=== PATIENT | male | born 1945 | race Caucasian/White ===

== ENCOUNTER 2018-09-27 10:32 | Emergency (ER) | payer MEDICARE, OTHER ==
[~2018-09-27] VITALS: Ht 165.1 cm; Wt 55.4 kg
[2018-09-27 12:03] VITALS: BP 173/87
== END 2018-09-27 12:19 | disposition home or self-care (01) ==
LOC: ED 11:50
DX: G89.11 Acute pain due to trauma (principal); M25.461 Effusion, right knee; M11.261 Other chondrocalcinosis, right knee; I10 Essential (primary) hypertension; F17.200 Nicotine dependence, unspecified, uncomplicated; W22.8XXA Striking against or struck by other objects, initial encounter; Y93.89 Activity, other specified; Y92.009 Unspecified place in unspecified non-institutional (private) residence as the place of occurrence of the external cause; Y99.8 Other external cause status
CPT/HCPCS: 73564; 96372; 99283; J1885

== ENCOUNTER → 2019-01-21 | Outpatient (CLI) | payer MEDICARE ==
[~2019-01-21] MED LIST: TERA5CAP3 PO
[2019-01-21 09:25] LABS: BASOPHILS # (AUTO) 0.11 x10^3/uL (0-0.1); BASOPHILS % (AUTO) 2 % (0-1); EOSINOPHILS % (AUTO) 3 % (1-7); LYMPHOCYTES # (AUTO) 1.77 x10^3/uL (1-3.4); LYMPHOCYTES % (AUTO) 27 % (22-44); MD NO; MEAN CORPUSCULAR HEMOGLOBIN 34.3 pg (27.5-34.5); MEAN CORPUSCULAR HGB CONC 33.5 g/dL (33.2-36.2); MEAN CORPUSCULAR VOLUME 102.5 fL (81-97); MEAN PLATELET VOLUME 7.3 fL (7.4-10.4); MONOCYTES # (AUTO) 0.68 x10^3/uL (0.2-0.8); MONOCYTES % (AUTO) 10 % (2-9); NEUTROPHILS % (AUTO) 59 % (42-75); PLATELET COUNT 288 x10^3/uL (130-400); RED BLOOD COUNT 4.55 x10^6/uL (4.38-5.82); RED CELL DISTRIBUTION WIDTH 13.2 % (9.4-14.8)
[2019-01-21 09:35] LABS: INTERNATIONAL NORMALIZED RATIO 1.03 (0.93-1.1); PROTHROMBIN TIME 10.8 Seconds (9.6-11.5)
[2019-01-21 09:38] LABS: ALANINE AMINOTRANSFERASE 17 U/L (12-78); ALBUMIN 3.8 g/dL (3.4-5.0); ANION GAP 5 mmol/L (5-15); CHLORIDE 102 mmol/L (98-107); CREATININE 0.85 mg/dL (0.7-1.3)
[2019-01-21 09:41] LABS: ALKALINE PHOSPHATASE 40 U/L (45-117); BILIRUBIN,TOTAL 0.9 mg/dL (0.2-1.0); TOTAL PROTEIN 7.5 g/dL (6.4-8.2)
== END | disposition home or self-care (01) ==
LOC: STAR 08:27
PROVIDERS: ATTEND Neurological Surgery
DX: Z01.818 Encounter for other preprocedural examination (principal); M43.10 Spondylolisthesis, site unspecified; F17.200 Nicotine dependence, unspecified, uncomplicated
CPT/HCPCS: 36415; 80053; 85025; 85610; 85730; 93005

== ENCOUNTER 2019-02-03 05:45 | Inpatient (IN) | payer MEDICARE ==
[~2019-02-03] VITALS: Ht 165.1 cm; Wt 61.2 kg
[2019-02-03] MEDS ORDERED: DEXAMETHASONE 4 MG/ML, 1ML IV PRN (06:30)
[2019-02-03] MEDS ORDERED: METOCLOPRAMIDE 5 MG/ML, 2ML IV PRN (06:30)
[2019-02-03] MEDS ORDERED: HALOPERIDOL 5 MG/ML IV PRN (06:30)
[2019-02-03] MEDS ORDERED: OXYcodone 5 MG/5 ML ORAL.SOL UDC PO PRN (06:30)
[2019-02-03] MEDS ORDERED: MIDAZOLAM 1 MG/ML, 2ML IV PRN (06:30)
[2019-02-03] MEDS ORDERED: hydrALAzine 20 MG/ML, 1ML IV PRN (06:30)
[2019-02-03] MEDS ORDERED: ALBUTEROL/IPRATROPIUM 2.5MG/0.5MG, 3 ML NPPB PRN (06:30)
[2019-02-03] MEDS ORDERED: HYDROmorphone 2 MG/ML, 1ML IVPush PRN (06:30)
[2019-02-03] MEDS ORDERED: EPHEDRINE 50 MG/ML, 1ML IVPush PRN (06:30)
[2019-02-03] MEDS ORDERED: LABETALOL 5MG/ML, 20ML IV PRN (06:30)
[2019-02-03] MEDS ORDERED: FENTANYL PF 100 MCG/2ML IV PRN (06:30)
[2019-02-03] MEDS ORDERED: MEPERIDINE/PF 25MG/ML,1ML IVPush PRN (06:30)
[2019-02-03] MEDS ORDERED: ONDANSETRON 2MG/ML, 2ML IV PRN (06:30)
[2019-02-03] MEDS ORDERED: KETOROLAC 30 MG/1 ML IV PRN (06:30)
[2019-02-03] MEDS ORDERED: DIPHENHYDRAMINE 50 MG/ML, 1ML IVPush PRN (06:30)
[2019-02-03] MEDS ORDERED: MAGNESIUM SULFATE 1 GM/2 ML ONE (06:34)
[2019-02-03] MEDS ORDERED: LIDOCAINE 1%, 20ML ONE (06:35)
[2019-02-03] MEDS ORDERED: KETAMINE 10 MG/ML, 20ML ONE (06:35)
[2019-02-03] MEDS ORDERED: FENTANYL PF 250 MCG/5ML ONE (06:39)
[2019-02-03] MEDS ORDERED: GLYCOPYRROLATE 0.2MG/1ML, 5ML ONE (06:39)
[2019-02-03] MEDS ORDERED: MIDAZOLAM 1 MG/ML, 2ML ONE (06:39)
[2019-02-03] MEDS ORDERED: PROPOFOL 10 MG/ML, 20ML ONE (06:39)
[2019-02-03] MEDS ORDERED: ROCURONIUM 10MG/ML,5ML ONE (06:39)
[2019-02-03] MEDS ORDERED: DEXAMETHASONE 4 MG/ML, 1ML ONE (06:39)
[2019-02-03] MEDS ORDERED: LACTATED RINGERS 1,000 ML IV SCH (06:52)
[2019-02-03] MEDS ORDERED: FAMOTIDINE 20 MG TABLET PO ONE (07:00)
[2019-02-03] MEDS ORDERED: GABAPENTIN 300 MG CAPSULE PO ONE (07:00)
[2019-02-03] MEDS ORDERED: OXYcodone IR 5MG TABLET PO ONE (07:00)
[2019-02-03] MEDS ORDERED: TAMSULOSIN 0.4 MG CAP.ER.24H PO ONE (07:00)
[2019-02-03] MEDS ORDERED: SCOPOLAMINE PATCH, 1.5MG PATCH.TD72 TD ONE (07:00)
[2019-02-03] MEDS ORDERED: THROMBIN 5,000 UNIT VIAL TP ONE (07:03)
[2019-02-03] MEDS ORDERED: EPINEPHRINE 1 MG/ML, 1ML ONE (07:03)
[2019-02-03] MEDS ORDERED: BACITRACIN 50,000 UNIT ONE (07:03)
[2019-02-03] MEDS ORDERED: VANCOMYCIN 1,000 MG ONE (07:03)
[2019-02-03] MEDS ORDERED: BUPIVACAINE/PF 0.5% ONE (07:03)
[2019-02-03] MEDS ORDERED: MINERAL OIL 10 ML VIAL MC ONE (07:03)
[2019-02-03] MEDS ORDERED: THROMBIN (RECOMBINANT) 5,000 UNIT VIAL TP ONE (07:04)
[2019-02-03] MEDS ORDERED: CEFAZOLIN 1,000 MG ONE (07:33)
[2019-02-03] MEDS ORDERED: PHARMACY MAY ADJ FOR RENAL FX MC PRN (10:30)
[2019-02-03] MEDS ORDERED: SENNA/DOCUSATE TABLET PO PRN (10:30)
[2019-02-03] MEDS ORDERED: PROMETHAZINE 25 MG/ML, 1ML IM PRN (10:30)
[2019-02-03] MEDS ORDERED: LABETALOL 5MG/ML, 20ML IVPush PRN (10:30)
[2019-02-03] MEDS ORDERED: HYDROmorphone PCA 30 MG/30 ML IV PRN (10:30)
[2019-02-03] MEDS ORDERED: ONDANSETRON 2MG/ML, 2ML IVPush PRN (10:30)
[2019-02-03] MEDS ORDERED: BISACODYL 10 MG SUPP PR PRN (10:30)
[2019-02-03] MEDS ORDERED: DIPHENHYDRAMINE 50 MG CAPSULE PO PRN (10:30)
[2019-02-03] MEDS ORDERED: hydrALAzine 20 MG/ML, 1ML ONE (11:08)
[2019-02-03] MEDS: BEER 12 OZ CAN PO SCH ×2 (12:00→16:21)
[2019-02-03] MEDS: NS + 20MEQ KCL 1,000 ML IV SCH ×2 (13:14→23:31)
[2019-02-03] MEDS: CEFAZOLIN PMX 1GM/50ML 50 ML IVPB SCH ×2 (15:14→23:29)
[2019-02-03] MEDS: SODIUM CHLORIDE FLUSH 10ML SYR IVF SCH (20:15)
[2019-02-03] MEDS: TERAZOSIN 5MG CAPSULE PO SCH (20:16)
[2019-02-04 03:28] VITALS: BP 144/69
[2019-02-04 05:20] LABS: BASOPHILS # (AUTO) 0.02 x10^3/uL (0-0.1); BASOPHILS % (AUTO) 0 % (0-1); EOSINOPHILS # (AUTO) 0.01 x10^3/uL (0-0.4); EOSINOPHILS % (AUTO) 0 % (1-7); LYMPHOCYTES # (AUTO) 1.58 x10^3/uL (1-3.4); LYMPHOCYTES % (AUTO) 15 % (22-44); MD NO; MEAN CORPUSCULAR HEMOGLOBIN 34.5 pg (27.5-34.5); MEAN CORPUSCULAR HGB CONC 33.5 g/dL (33.2-36.2); MEAN PLATELET VOLUME 7.2 fL (7.4-10.4); MONOCYTES # (AUTO) 0.83 x10^3/uL (0.2-0.8); MONOCYTES % (AUTO) 8 % (2-9); NEUTROPHILS # (AUTO) 7.88 x10^3/uL (1.8-6.8); NEUTROPHILS % (AUTO) 76 % (42-75); PLATELET COUNT 264 x10^3/uL (130-400); RED BLOOD COUNT 3.66 x10^6/uL (4.38-5.82); RED CELL DISTRIBUTION WIDTH 13.4 % (9.4-14.8)
[2019-02-04 05:27] LABS: ANION GAP 2 mmol/L (5-15); CALCIUM 8.2 mg/dL (8.5-10.1); CHLORIDE 106 mmol/L (98-107); CREATININE 0.81 mg/dL (0.7-1.3)
[2019-02-04 08:22] VITALS: BP 150/71
[2019-02-04] MEDS: TERAZOSIN 5MG CAPSULE PO SCH ×2 (08:51→20:19)
[2019-02-04] MEDS: SODIUM CHLORIDE FLUSH 10ML SYR IVF SCH ×2 (08:51→20:21)
[2019-02-04] MEDS: HYDROcodone/APAP 10/325 MG TABLET PO PRN ×2 (09:54→20:19)
[2019-02-04] MEDS: NS + 20MEQ KCL 1,000 ML IV SCH ×2 (11:06→20:20)
[2019-02-04] MEDS: BEER 12 OZ CAN PO SCH ×2 (12:38→17:34)
[2019-02-04] MEDS: HYDROcodone/APAP 5/325 TABLET PO PRN (14:16)
[2019-02-04] MEDS: CYCLOBENZAPRINE 10 MG TABLET PO PRN (16:52)
[2019-02-04 19:59] VITALS: BP 159/73
[2019-02-05 00:27] VITALS: BP 157/77
[2019-02-05] MEDS: CYCLOBENZAPRINE 10 MG TABLET PO PRN ×2 (01:09→14:21)
[2019-02-05] MEDS: HYDROcodone/APAP 10/325 MG TABLET PO PRN ×2 (01:09→12:06)
[2019-02-05 04:05] VITALS: BP 133/72
[2019-02-05 05:47] LABS: ANION GAP 2 mmol/L (5-15); CALCIUM 8.3 mg/dL (8.5-10.1); CHLORIDE 108 mmol/L (98-107); CREATININE 0.77 mg/dL (0.7-1.3)
[2019-02-05 05:53] LABS: BASOPHILS # (AUTO) 0.13 x10^3/uL (0-0.1); BASOPHILS % (AUTO) 2 % (0-1); EOSINOPHILS # (AUTO) 0.12 x10^3/uL (0-0.4); EOSINOPHILS % (AUTO) 2 % (1-7); LYMPHOCYTES # (AUTO) 2.46 x10^3/uL (1-3.4); LYMPHOCYTES % (AUTO) 30 % (22-44); MD NO; MEAN CORPUSCULAR HEMOGLOBIN 35.1 pg (27.5-34.5); MEAN CORPUSCULAR HGB CONC 33.5 g/dL (33.2-36.2); MEAN CORPUSCULAR VOLUME 104.8 fL (81-97); MEAN PLATELET VOLUME 7.5 fL (7.4-10.4); MONOCYTES # (AUTO) 0.84 x10^3/uL (0.2-0.8); MONOCYTES % (AUTO) 10 % (2-9); NEUTROPHILS # (AUTO) 4.65 x10^3/uL (1.8-6.8); NEUTROPHILS % (AUTO) 57 % (42-75); PLATELET COUNT 247 x10^3/uL (130-400); RED BLOOD COUNT 3.64 x10^6/uL (4.38-5.82); RED CELL DISTRIBUTION WIDTH 13.9 % (9.4-14.8)
[2019-02-05 08:15] VITALS: BP 165/79
[2019-02-05] MEDS: TERAZOSIN 5MG CAPSULE PO SCH ×2 (08:17→20:33)
[2019-02-05] MEDS: SODIUM CHLORIDE FLUSH 10ML SYR IVF SCH ×2 (08:18→20:33)
[2019-02-05] MEDS: NS + 20MEQ KCL 1,000 ML IV SCH ×2 (08:18→18:25)
[2019-02-05 09:00] VITALS: BP 145/64
[2019-02-05] MEDS: BEER 12 OZ CAN PO SCH ×2 (12:06→17:02)
[2019-02-05] MEDS: MAGNESIUM HYDROXIDE 8%, 30ML UDC PO PRN (14:21)
[2019-02-05 16:55] VITALS: BP 174/70
[2019-02-05] MEDS: HYDROcodone/APAP 5/325 TABLET PO PRN (17:50)
[2019-02-05] MEDS: LABETALOL 5 MG/ML SYR. (IV ONLY) IVPush PRN (18:23)
[2019-02-05 20:11] VITALS: BP 160/80
[2019-02-06] MEDS: HYDROcodone/APAP 10/325 MG TABLET PO PRN (00:09)
[2019-02-06 01:31] VITALS: BP 156/74
[2019-02-06] MEDS: CYCLOBENZAPRINE 10 MG TABLET PO PRN (05:07)
[2019-02-06] MEDS: NS + 20MEQ KCL 1,000 ML IV SCH (05:07)
[2019-02-06] MEDS: HYDROcodone/APAP 5/325 TABLET PO PRN ×3 (05:08→20:15)
[2019-02-06 05:36] LABS: BASOPHILS # (AUTO) 0.06 x10^3/uL (0-0.1); BASOPHILS % (AUTO) 1 % (0-1); EOSINOPHILS # (AUTO) 0.17 x10^3/uL (0-0.4); EOSINOPHILS % (AUTO) 2 % (1-7); LYMPHOCYTES # (AUTO) 2.27 x10^3/uL (1-3.4); LYMPHOCYTES % (AUTO) 30 % (22-44); MD NO; MEAN CORPUSCULAR HGB CONC 33.5 g/dL (33.2-36.2); MEAN CORPUSCULAR VOLUME 104.3 fL (81-97); MEAN PLATELET VOLUME 7.5 fL (7.4-10.4); MONOCYTES # (AUTO) 0.78 x10^3/uL (0.2-0.8); MONOCYTES % (AUTO) 10 % (2-9); NEUTROPHILS # (AUTO) 4.27 x10^3/uL (1.8-6.8); NEUTROPHILS % (AUTO) 57 % (42-75); PLATELET COUNT 246 x10^3/uL (130-400); RED BLOOD COUNT 3.64 x10^6/uL (4.38-5.82); RED CELL DISTRIBUTION WIDTH 13.7 % (9.4-14.8)
[2019-02-06 05:58] LABS: ANION GAP 5 mmol/L (5-15); CALCIUM 8.4 mg/dL (8.5-10.1); CHLORIDE 106 mmol/L (98-107)
[2019-02-06 06:00] LABS: CREATININE 0.63 mg/dL (0.7-1.3)
[2019-02-06 07:22] VITALS: BP 195/90
[2019-02-06 07:35] VITALS: BP 185/73
[2019-02-06] MEDS: LABETALOL 5 MG/ML SYR. (IV ONLY) IVPush PRN (07:48)
[2019-02-06 08:55] VITALS: BP 157/75
[2019-02-06] MEDS: SODIUM CHLORIDE FLUSH 10ML SYR IVF SCH ×2 (09:02→20:16)
[2019-02-06] MEDS: TERAZOSIN 5MG CAPSULE PO SCH ×2 (09:02→20:15)
[2019-02-06] MEDS: BEER 12 OZ CAN PO SCH ×2 (12:28→17:00)
[2019-02-06 13:31] VITALS: BP 159/82
[2019-02-06 21:02] VITALS: BP 160/76
[2019-02-07 00:41] VITALS: BP 158/70
[2019-02-07] MEDS: HYDROcodone/APAP 5/325 TABLET PO PRN ×2 (02:54→10:17)
[2019-02-07] MEDS: MAGNESIUM HYDROXIDE 8%, 30ML UDC PO PRN (02:55)
[2019-02-07 05:54] LABS: BASOPHILS # (AUTO) 0.04 x10^3/uL (0-0.1); BASOPHILS % (AUTO) 1 % (0-1); EOSINOPHILS # (AUTO) 0.22 x10^3/uL (0-0.4); EOSINOPHILS % (AUTO) 3 % (1-7); LYMPHOCYTES # (AUTO) 1.63 x10^3/uL (1-3.4); LYMPHOCYTES % (AUTO) 19 % (22-44); MD NO; MEAN CORPUSCULAR HEMOGLOBIN 34.6 pg (27.5-34.5); MEAN CORPUSCULAR HGB CONC 33.2 g/dL (33.2-36.2); MEAN CORPUSCULAR VOLUME 104.3 fL (81-97); MEAN PLATELET VOLUME 8.1 fL (7.4-10.4); MONOCYTES % (AUTO) 8 % (2-9); NEUTROPHILS # (AUTO) 5.81 x10^3/uL (1.8-6.8); NEUTROPHILS % (AUTO) 69 % (42-75); PLATELET COUNT 290 x10^3/uL (130-400); RED BLOOD COUNT 3.81 x10^6/uL (4.38-5.82); RED CELL DISTRIBUTION WIDTH 13.1 % (9.4-14.8)
[2019-02-07 06:04] LABS: ANION GAP 7 mmol/L (5-15); CALCIUM 9.3 mg/dL (8.5-10.1); CHLORIDE 101 mmol/L (98-107)
[2019-02-07 06:05] LABS: CREATININE 0.66 mg/dL (0.7-1.3)
[2019-02-07 07:45] VITALS: BP 129/79
[2019-02-07] MEDS ORDERED: BISACODYL 10 MG SUPP PR STA (07:53)
[2019-02-07] MEDS: TERAZOSIN 5MG CAPSULE PO SCH (10:00)
[2019-02-07] MEDS: SODIUM CHLORIDE FLUSH 10ML SYR IVF SCH (10:01)
== END 2019-02-07 12:36 | disposition home or self-care (01) | DRG 455 ==
LOC: ORIP 05:45 → CCU 12:17 → 4EST 02-04 03:24 → DCLOUNGE 02-07 12:17
PROVIDERS: ADMIT Neurological Surgery; ATTEND Neurological Surgery
PROC: 0SG00AJ Fusion of Lumbar Vertebral Joint with Interbody Fusion Device, Posterior Approach, Anterior Column, Open Approach (ICD-10-PCS; 2019-02-03)
PROC: 0SG0071 Fusion of Lumbar Vertebral Joint with Autologous Tissue Substitute, Posterior Approach, Posterior Column, Open Approach (ICD-10-PCS; 2019-02-03)
PROC: 0SB20ZZ Excision of Lumbar Vertebral Disc, Open Approach (ICD-10-PCS; 2019-02-03)
PROC: 01NB0ZZ Release Lumbar Nerve, Open Approach (ICD-10-PCS; principal; 2019-02-03 07:30)
DX: M48.061 Spinal stenosis, lumbar region without neurogenic claudication (principal); M43.16 Spondylolisthesis, lumbar region; J44.9 Chronic obstructive pulmonary disease, unspecified; M54.16 Radiculopathy, lumbar region; F10.10 Alcohol abuse, uncomplicated; F17.210 Nicotine dependence, cigarettes, uncomplicated; I10 Essential (primary) hypertension; N40.0 Benign prostatic hyperplasia without lower urinary tract symptoms; Z80.9 Family history of malignant neoplasm, unspecified
CPT/HCPCS: 36415; 72100; 80048; 85025; 86850; 86900; 87081; C1713; C1776; G0378; J0171; J0690; J1100; J1170; J2250; J2704; J3010; J3370; J3475; J3480; C1762; J0360; J7120

== ENCOUNTER 2020-01-05 10:24 | Emergency (ER) | payer MEDICARE ==
[~2020-01-05] VITALS: Ht 165.1 cm; Wt 54.8 kg
--- NOTE | 2020-01-05 11:05 | NUR ---
WITH FURTHER ASSESSMENT PATIENT DOES NOT USE OXYGEN. HOWEVER HE HAS BEEN USING HIS FRIENDS OXYGEN AT HOME BECAUSE HE HAS BEEN SO SHORT OF BREATH COVID SWAB OBTAINED DROPLET PLUS PRECAUTIONS PLACED ROOM AIR POX 87% WET COUGH, WE SHOUDING TO BASES BILATERALLY SMOKER
--- NOTE | 2020-01-05 11:13 | NUR ---
RADIOLOGY AT BEDSIDE
[2020-01-05] MEDS ORDERED: ASPI-515 PO (11:25)
[2020-01-05] MEDS ORDERED: ATOR-2 PO (11:30)
--- NOTE | 2020-01-05 11:51 | NUR ---
LEFT ARM PIV PLACED FROM WHICH FULL SET OF LABS INCLUDING 1 SET OF BLOOD CULTURES DRAWN
[2020-01-05] MEDS ORDERED: CEFTRIAXONE PMX 1GM/50ML 50 ML ONE ×2 (11:55→23:06)
[2020-01-05] MEDS ORDERED: methylPREDNISolone SOD SUCC 125 MG/2 ML ONE (11:55)
[2020-01-05] MEDS ORDERED: ALBUTEROL/IPRATROPIUM 2.5MG/0.5MG, 3 ML ONE (11:56)
[2020-01-05] MEDS ORDERED: CEFTRIAXONE PMX 1GM/50ML 50 ML IVPB ONE (12:00)
[2020-01-05] MEDS ORDERED: AZITHROMYCIN 500 MG in SODIUM CHLORIDE 0.9% 250 ML IVPB ONE (12:00)
[2020-01-05] MEDS ORDERED: ALBUTEROL/IPRATROPIUM 2.5MG/0.5MG, 3 ML NPPB ONE (12:00)
[2020-01-05] MEDS ORDERED: methylPREDNISolone SOD SUCC 125 MG/2 ML IV ONE (12:00)
[2020-01-05 12:02] LABS: BASOPHILS % (AUTO) 1 % (0-1); EOSINOPHILS % (AUTO) 1 % (1-7); LYMPHOCYTES % (AUTO) 11 % (22-44); MEAN CORPUSCULAR HEMOGLOBIN 32.1 pg (27.5-34.5); MEAN CORPUSCULAR HGB CONC 33.3 g/dL (33.2-36.2); MEAN PLATELET VOLUME 7.5 fL (7.4-10.4); MONOCYTES % (AUTO) 11 % (2-9); NEUTROPHILS % (AUTO) 77 % (42-75); PLATELET COUNT 480 x10^3/uL (130-400); RED BLOOD COUNT 3.99 x10^6/uL (4.38-5.82); RED CELL DISTRIBUTION WIDTH 14.3 % (9.4-14.8)
--- NOTE | 2020-01-05 12:02 | NUR ---
MEDICATED PER EMAR WITH STEROIDS/NEB. NEED 2ND BLOOD CULTURE PRIOR TO ABX ADMIN-LAB MADE AWARE
[2020-01-05 12:09] LABS: ALBUMIN 2.3 g/dL (3.4-5.0); ANION GAP 8 mmol/L (5-15); CALCIUM 9.2 mg/dL (8.5-10.1); CHLORIDE 101 mmol/L (98-107); CREATININE 0.61 mg/dL (0.7-1.3)
[2020-01-05 12:13] LABS: TROPONIN I < 0.015 ng/mL (0.000-0.045)
--- NOTE | 2020-01-05 12:31 | NUR ---
2nd set of blood cultures, lactate/pct obtained- then medicated per emar NO IMPROVEMENT POST NEBULIZER REPORTED OR ASSESSED
[2020-01-05 12:50] LABS: MD SCAN
--- NOTE | 2020-01-05 12:58 | NUR ---
ABX 2/2 ADMINISTERED LUNCH, HOSPITAL BED ORDERED-UPDATED ON ESTIMATED POC
--- NOTE | 2020-01-05 13:34 | NUR ---
Dr. Staples with [facility] to admit Patient provided with lunch meal tray and moved to hospital bed with reassessment lungs still wet, still requiring 2l nc for pox > 90%
[2020-01-05] MEDS ORDERED: ALBUTEROL HFA 90 MCG/SPRAY INH PRN (14:30)
[2020-01-05] MEDS ORDERED: NICOTINE 21 MG/24 HR PATCH.TD24 TD PRN (16:30)
--- NOTE | 2020-01-05 18:55 | NUR ---
to ct scan
[2020-01-05] MEDS ORDERED: OMNIPAQUE 350 MG/ML, 100ML BOTTLE ONE (19:24)
[2020-01-05] MEDS ORDERED: ENOXAPARIN 40 MG/0.4 ML ONE (19:35)
[2020-01-05] MEDS ORDERED: ATORVASTATIN 20 MG TABLET ONE (21:47)
[2020-01-05] MEDS: ENOXAPARIN 30 MG/0.3 ML SQ SCH (21:54)
[2020-01-05] MEDS: TERAZOSIN 5MG CAPSULE PO SCH (21:54)
[2020-01-05] MEDS: SODIUM CHLORIDE 0.9% 1,000 ML IV SCH (21:55)
[2020-01-05] MEDS: ATORVASTATIN 80 MG TABLET PO SCH (22:02)
--- NOTE | 2020-01-05 22:04 | NUR ---
MEDICATED PER EMAR WITH IVF/HOME MEDS PATIENT REPORTS "I'M FEELING BETTER BY THE HOUR." STILL REQUIRING 2L NC REPORT TO VIMAL HOUGH
--- NOTE | 2020-01-05 22:56 | NUR ---
REPORT TO SKYLAR HOUGH.
--- NOTE | 2020-01-05 23:02 | NUR ---
Report received from GIANLUCA Garza. This RN to assume care.
[2020-01-05] MEDS ORDERED: CEFTRIAXONE PMX 1GM/50ML 50 ML IV SCH (23:55)
--- NOTE | 2020-01-06 01:42 | NUR ---
Provided drinks to patient. No other needs at this time.
[2020-01-06] MEDS: ENOXAPARIN 30 MG/0.3 ML SQ SCH (05:30)
[2020-01-06 06:28] LABS: BASOPHILS % (AUTO) 0 % (0-1); EOSINOPHILS % (AUTO) 0 % (1-7); LYMPHOCYTES % (AUTO) 6 % (22-44); MEAN CORPUSCULAR HEMOGLOBIN 31.9 pg (27.5-34.5); MEAN CORPUSCULAR HGB CONC 32.8 g/dL (33.2-36.2); MEAN PLATELET VOLUME 7.7 fL (7.4-10.4); MONOCYTES % (AUTO) 4 % (2-9); NEUTROPHILS % (AUTO) 90 % (42-75); PLATELET COUNT 521 x10^3/uL (130-400); RED BLOOD COUNT 3.86 x10^6/uL (4.38-5.82); RED CELL DISTRIBUTION WIDTH 14.1 % (9.4-14.8)
--- NOTE | 2020-01-06 06:36 | NUR ---
Meal tray ordered.
[2020-01-06 06:38] LABS: ANION GAP 6 mmol/L (5-15); CALCIUM 9.2 mg/dL (8.5-10.1); CHLORIDE 106 mmol/L (98-107); CREATININE 0.61 mg/dL (0.7-1.3)
--- NOTE | 2020-01-06 06:50 | NUR ---
REPORT RECEIVED FROM GIANLUCA ASCENCIO
[2020-01-06 07:11] LABS: MD SCAN
--- NOTE | 2020-01-06 07:35 | NUR ---
cardiac rhythm strip printed and placed on chart
[2020-01-06] MEDS ORDERED: ASCORBIC ACID 500 MG TABLET ONE ×2 (08:25→17:32)
[2020-01-06] MEDS ORDERED: DEXAMETHASONE 4 MG/ML, 1ML ONE ×3 (08:25→23:19)
[2020-01-06] MEDS: ASCORBIC ACID 500 MG TABLET PO SCH ×2 (08:32→18:05)
[2020-01-06] MEDS: DEXAMETHASONE 4 MG/ML, 1ML IVPush SCH ×2 (08:32→18:05)
--- NOTE | 2020-01-06 08:36 | NUR ---
PT RESTING IN BED WATCHING TV. PT IN NO APPARENT DISTRESS. VS OBTAINED. ALL NEEDS MET AT THIS TIME.
[2020-01-06] MEDS ORDERED: ASPIRIN 81 MG TABLET EC ONE (08:43)
[2020-01-06] MEDS: ASPIRIN 81 MG TABLET EC PO SCH (08:45)
[2020-01-06] MEDS: GUAIFENESIN ER 600 MG TABLET PO SCH ×2 (08:57→21:01)
--- NOTE | 2020-01-06 09:39 | NUR ---
ORAL HYGIENE KIT PROVIDED TO PATIENT
--- NOTE | 2020-01-06 10:29 | NUR ---
PROVIDED INCENTENTIVE SPIROMETER WITH TEACHING PROVIDED. PT DEMONSTRATED ABILITY TO USE IT. PT ENCOURAGED TO DO REPETITIONS OF 10 EVERY HOUR.
--- NOTE | 2020-01-06 11:00 | NUR ---
DR EASLEY HOSPITALIST AT BEDSIDE.
[2020-01-06] MEDS ORDERED: ZINC SULFATE 220 MG CAPSULE ONE (11:22)
[2020-01-06] MEDS: ZINC SULFATE 220 MG CAPSULE PO SCH (11:34)
[2020-01-06] MEDS: TERAZOSIN 5MG CAPSULE PO SCH ×2 (11:34→21:01)
--- NOTE | 2020-01-06 11:36 | NUR ---
PT RESTING IN BED, WATCHING TV. PTS NEEDS MET AT THIS TIME. VS OBTAINED.
--- NOTE | 2020-01-06 12:26 | NUR ---
[facility] ADMINISTRATION DELAYED DUE TO NONE LOCATED IN [facility]. PHARMACY ADVISED THEY WOULD REFILL SHORTLY.
[2020-01-06] MEDS ORDERED: ENOXAPARIN 60 MG/0.6 ML ONE ×2 (12:30→20:59)
[2020-01-06] MEDS: ENOXAPARIN 60 MG/0.6 ML SQ SCH ×2 (12:35→21:02)
--- NOTE | 2020-01-06 12:41 | NUR ---
cardiac rhythm strip printed and placed on chart
[2020-01-06] MEDS: AZITHROMYCIN 500 MG in SODIUM CHLORIDE 0.9% 250 ML IV SCH (13:02)
--- NOTE | 2020-01-06 13:30 | NUR ---
Report given to GIANLUCA Rankin
--- NOTE | 2020-01-06 13:32 | NUR ---
REPORT REC'D FROM GIANLUCA JIMÉNEZ
[2020-01-06] MEDS: NICOTINE PATCH MC SCH ×3 (15:08→15:11)
--- NOTE | 2020-01-06 17:49 | NUR ---
CARDIAC RHYTHM STRIP PRINTED AND PLACED ON CHART
[2020-01-06 20:15] VITALS: BP 138/62
[2020-01-06] MEDS ORDERED: ENOXAPARIN 80 MG/0.8 ML ONE (20:23)
[2020-01-06] MEDS ORDERED: MELATONIN 5 MG TABLET ONE (20:24)
[2020-01-06] MEDS ORDERED: ATORVASTATIN 80 MG TABLET ONE (20:24)
[2020-01-06] MEDS ORDERED: GUAIFENESIN ER 600 MG TABLET ONE ×2 (20:31→20:33)
[2020-01-06] MEDS: ATORVASTATIN 80 MG TABLET PO SCH (21:01)
[2020-01-06] MEDS: MELATONIN 5 MG TABLET PO SCH (21:01)
[2020-01-06] MEDS: SODIUM CHLORIDE 0.9% 1,000 ML IV SCH (21:01)
[2020-01-06] MEDS ORDERED: DEXAMETHASONE 4 MG TABLET ONE (23:18)
[2020-01-07 00:23] VITALS: BP 126/52
[2020-01-07] MEDS: DEXAMETHASONE 4 MG/ML, 1ML IVPush SCH ×3 (00:23→16:21)
[2020-01-07] MEDS ORDERED: CEFTRIAXONE PMX 1GM/50ML 50 ML ONE (01:32)
[2020-01-07] MEDS ORDERED: CEFTRIAXONE PMX 2GM/50ML 50 ML ONE (01:34)
[2020-01-07] MEDS: CEFTRIAXONE PMX 2GM/50ML 50 ML IVPB SCH (01:38)
[2020-01-07 04:40] VITALS: BP 122/45
[2020-01-07] MEDS ORDERED: ZINC SULFATE 220 MG CAPSULE ONE (08:29)
[2020-01-07] MEDS ORDERED: ASPIRIN 81 MG TABLET EC ONE (08:29)
[2020-01-07] MEDS ORDERED: DEXAMETHASONE 4 MG/ML, 1ML ONE ×2 (08:29→16:18)
[2020-01-07] MEDS ORDERED: GUAIFENESIN ER 600 MG TABLET ONE ×2 (08:29→20:46)
[2020-01-07] MEDS ORDERED: ENOXAPARIN 60 MG/0.6 ML ONE ×2 (08:30→20:37)
[2020-01-07] MEDS ORDERED: ASCORBIC ACID 500 MG TABLET ONE ×2 (08:30→17:34)
[2020-01-07] MEDS: ENOXAPARIN 60 MG/0.6 ML SQ SCH ×2 (09:04→21:00)
[2020-01-07] MEDS: GUAIFENESIN ER 600 MG TABLET PO SCH ×2 (09:04→21:01)
[2020-01-07] MEDS: ASPIRIN 81 MG TABLET EC PO SCH (09:05)
[2020-01-07] MEDS: ZINC SULFATE 220 MG CAPSULE PO SCH (09:05)
[2020-01-07] MEDS: ASCORBIC ACID 500 MG TABLET PO SCH ×2 (09:05→17:36)
[2020-01-07] MEDS: TERAZOSIN 5MG CAPSULE PO SCH ×2 (09:05→21:01)
--- NOTE | 2020-01-07 09:14 | NUR ---
ASSUMED CARE OF PT. PT RESTING IN BED. NADN. VSS. PROVIDED W/ BREAKFAST TRAY. AWARE OF POC TO ADMIT TO COVID UNIT ONCE ROOM BECOMES AVAILABLE. [facility] DR. PRASAD AT BEDSIDE TO EVALUATE PT. NOTIFIED OF PT O2 SATS SATING 89-90% 2L NC AND INCREASED TO 3L NC NOW SATING 91%.
--- NOTE | 2020-01-07 09:15 | NUR ---
REPORT TO GIANLUCA HUYNH.
--- NOTE | 2020-01-07 09:34 | NUR ---
REPORT FROM STU HOUGH, ASSUME CARE OF PT AT THIS TIME. PT EATING BREAKFAST, GIA.
--- NOTE | 2020-01-07 11:15 | NUR ---
ROUNDING NOTE, PT AWAKE/WATCHING TV. NAD. CALL LIGHT WITHIN REACH.
[2020-01-07] MEDS: AZITHROMYCIN 500 MG in SODIUM CHLORIDE 0.9% 250 ML IV SCH (11:40)
--- NOTE | 2020-01-07 11:48 | NUR ---
ANSWERED CALL LIGHT. URINAL EMPTIED, PT PROVIDED BEVERAGE. ANTIBIOTIC INFUSING PER EMAR. MEAL TRAY ORDERED.
--- NOTE | 2020-01-07 12:30 | NUR ---
MEAL TRAY PROVIDED.
--- NOTE | 2020-01-07 14:03 | NUR ---
PT ASSISTED UP TO BR. AMBULATES WITHOUT RESP DISTRESS.
--- NOTE | 2020-01-07 15:46 | NUR ---
PT WATCHING TV, NAD. CALL LIGHT WITHIN REACH.
--- NOTE | 2020-01-07 16:27 | NUR ---
PT MEDICATED PER EMAR. PT EXPRESSING DESIRE TO GO HOME, ASKING THIS RN TO CALL DR PRASAD AND ASK FOR DISCHARGE. "I'M GOING CRAZY IN HERE". CALL TO DR PRASAD MADE, POC REVIEWED. PER DR PRASAD, HOME O2 NEEDS TO BE ARRANGED BY CASE MANAGEMENT AND IF PT WANTS TO LEAVE PRIOR TO THAT HE WILL NEED TO LEAVE AMA. THIS RN ASKED ABOUT POSSIBILITY TO GET O2 ARRANGED TOMORROW AND DR PRASAD UNABLE TO GUARANTEE THAT. THIS CONVERSATION RELAYED TO PT. PT RECEPTIVE AND STATES "OK, I WILL STAY AND HOPEFULLY THEY WILL BE ABLE TO GET OXYGEN TOMORROW".
--- NOTE | 2020-01-07 17:14 | NUR ---
MEAL TRAY PROVIDED, CALL LIGHT WITHIN REACH. VSS
--- NOTE | 2020-01-07 18:35 | NUR ---
Pt tested negative for covid. PER VARNA SUP, PT NEEDS TO BE RE-EVALUATED FOR COVID SYMPTOMS AND POSSIBLE NEED FOR RETESTING OF COVID. CALLED DR. MANUEL, MADE HER AWARE OF SITUATION. STATED SHE WILL RE-EVAL PT. Addendum: 01/07/[address] EMERSON
--- NOTE | 2020-01-07 19:00 | NUR ---
PER DR. EMERSON PT NEEDS TO BE RETESTED FOR COVID AND NEW LAB PANELS DRAWN. DR. EMERSON PUTTING IN ORDERS AT THIS TIME. PT TO REMAIN ON ISO FOR COVID R/O
--- NOTE | 2020-01-07 19:27 | NUR ---
REPORT TO BORIS, TRANSFER OF CARE AT THIS TIME.
[2020-01-07 20:01] VITALS: BP 145/57
[2020-01-07] MEDS ORDERED: ATORVASTATIN 20 MG TABLET ONE (20:37)
[2020-01-07] MEDS ORDERED: MELATONIN 5 MG TABLET ONE (20:38)
[2020-01-07] MEDS: ATORVASTATIN 80 MG TABLET PO SCH (21:00)
[2020-01-07] MEDS: MELATONIN 5 MG TABLET PO SCH (21:00)
[2020-01-08] MEDS ORDERED: DEXAMETHASONE 4 MG/ML, 1ML ONE ×3 (00:12→10:40)
[2020-01-08] MEDS: DEXAMETHASONE 4 MG/ML, 1ML IVPush SCH ×2 (00:16→11:16)
[2020-01-08 00:17] VITALS: BP 140/64
[2020-01-08] MEDS ORDERED: CEFTRIAXONE PMX 2GM/50ML 50 ML ONE (01:14)
[2020-01-08] MEDS: CEFTRIAXONE PMX 2GM/50ML 50 ML IVPB SCH (01:19)
[2020-01-08 04:25] VITALS: BP 136/61
[2020-01-08 05:32] LABS: CALCIUM 9.2 mg/dL (8.5-10.1); CHLORIDE 103 mmol/L (98-107)
[2020-01-08 05:33] LABS: BASOPHILS % (AUTO) 1 % (0-1); EOSINOPHILS % (AUTO) 0 % (1-7); LYMPHOCYTES % (AUTO) 7 % (22-44); MEAN CORPUSCULAR HEMOGLOBIN 31.9 pg (27.5-34.5); MEAN PLATELET VOLUME 7.9 fL (7.4-10.4); MONOCYTES % (AUTO) 2 % (2-9); NEUTROPHILS % (AUTO) 90 % (42-75); PLATELET COUNT 660 x10^3/uL (130-400); RED BLOOD COUNT 4.04 x10^6/uL (4.38-5.82); RED CELL DISTRIBUTION WIDTH 14.1 % (9.4-14.8)
[2020-01-08 05:37] LABS: ALANINE AMINOTRANSFERASE 44 U/L (12-78); ALBUMIN 2.1 g/dL (3.4-5.0); ALKALINE PHOSPHATASE 53 U/L (45-117); ANION GAP 5 mmol/L (5-15); BILIRUBIN,TOTAL 0.2 mg/dL (0.2-1.0); CREATININE 0.53 mg/dL (0.7-1.3); TOTAL PROTEIN 6.1 g/dL (6.4-8.2)
[2020-01-08 05:58] LABS: MD SCAN
[2020-01-08 08:00] VITALS: BP 145/69
[2020-01-08] MEDS: ENOXAPARIN 60 MG/0.6 ML SQ SCH (08:00)
[2020-01-08] MEDS: GUAIFENESIN ER 600 MG TABLET PO SCH (09:00)
[2020-01-08] MEDS: ASPIRIN 81 MG TABLET EC PO SCH (09:00)
[2020-01-08] MEDS ORDERED: DOXY100T51 PO (10:16)
[2020-01-08] MEDS ORDERED: ALBU18HF INH (10:16)
[2020-01-08] MEDS ORDERED: PRED20TA PO (10:16)
[2020-01-08] MEDS ORDERED: ENOXAPARIN 40 MG/0.4 ML ONE (10:46)
[2020-01-08] MEDS: TERAZOSIN 5MG CAPSULE PO SCH (11:21)
--- NOTE | 2020-01-08 12:39 | NUR ---
Melida narayan in [facility] - 01/08/20 at 1245 by RFRUHLING WITH REASSESSMENT ROOM AIR SATURATION AT REST 88%
[2020-01-08] MEDS ORDERED: ASCORBIC ACID 500 MG TABLET ONE (12:40)
[2020-01-08] MEDS ORDERED: ASPIRIN 81 MG TABLET CHEW ONE (12:40)
--- NOTE | 2020-01-08 12:45 | NUR ---
DISREGARD PRIOR NOTE IN REGARD TO ROOM AIR SATURATION.
--- NOTE | 2020-01-08 12:46 | NUR ---
WITH ASSESSMENT- PATIENT WITH ROOM AIR SATURATION OF 87% WITH CONSISTENT/SOLID PLETH WAVEFORM
[2020-01-08] MEDS: ASCORBIC ACID 500 MG TABLET PO SCH (12:47)
[2020-01-08] MEDS: ZINC SULFATE 220 MG CAPSULE PO SCH (12:48)
[2020-01-08 14:00] VITALS: BP 135/65
[2020-01-08] MEDS: AZITHROMYCIN 500 MG in SODIUM CHLORIDE 0.9% 250 ML IV SCH (14:01)
--- NOTE | 2020-01-08 15:17 | NUR ---
MARY WITH [facility] CALLED TO COLLECT PATIENT'S CO-PAY FOR PORTABLE OXYGEN. PAYMENT PROVIDED VIA CAR PARKER PATIENT IN CONTACT ROOM
[2020-01-10] MEDS ORDERED: ENOXAPARIN 40 MG/0.4 ML SQ SCH (09:00)
== END 2020-01-08 18:26 | disposition home or self-care (01) ==
LOC: ED 11:39 → EDIP 12:33 → UNDOADMIN 12:33
DX: J96.01 Acute respiratory failure with hypoxia (principal); Z20.828 Contact with and (suspected) exposure to other viral communicable diseases; J44.9 Chronic obstructive pulmonary disease, unspecified; J18.9 Pneumonia, unspecified organism; R05 Cough; R07.89 Other chest pain; I10 Essential (primary) hypertension
CPT/HCPCS: 36415; 71045; 71275; 73110; 80048; 80053; 82040; 83605; 83615; 83880; 84145; 84484; 85025; 85379; 86140; 87040; 87635; 93005; 94640; 96365; 96367; 96375; 96376; 99285; J0456; J0696; J1100; J1650; J2930; J7030; J7050; Q9967